=== PATIENT | female | born 1990 | race Caucasian/White ===

== ENCOUNTER 2017-09-28 10:53 | Day surgery (SDC) | payer BC ==
[~2017-09-28] VITALS: Ht 160 cm; Wt 61.3 kg
[~2017-09-28 10:53] MED LIST: TOPAMAX50 MG PO; TRI-SPRINTEC1 EACH
[2017-09-28 11:10] VITALS: BP 108/52
[2017-09-28 11:49] LABS: EOSINOPHIL (%) 0.7 % (0-5); HEMATOCRIT 36.5 % (36.0-46.0); IMMATURE GRANULOCYTE (%) 0.2 % (0.0-0.7); INSTRUMENT ABS NEUTROPHIL CT 3.1 K/uL; LYMPHOCYTE COUNT 1.8 K/uL (1.0-2.8); MCHC 33.4 G/DL (30.0-36.0); MCV 92.6 FL (83-99); MEAN PLAT.VOLUME 10.3 uM^3 (9.5-12.4); MONOCYTE COUNT 0.4 K/uL (0-0.8); NEUTROPHIL (%) 57.7 % (45-76); NEUTROPHIL COUNT 3.1 K/uL (1.8-6.4); PLATELET COUNT 253 K/uL (156-360); RBC DIS.WIDTH-CV 12.6 % (11.8-14.6); RBC DIS.WIDTH-SD 43.4 % (39-53); RED BLOOD COUNT 3.94 M/uL (3.80-5.20); WHITE BLOOD COUNT 5.4 K/uL (4.1-10.2)
[2017-09-28] MEDS ORDERED: ENDOCET 5-3251 EACH PO (14:25)
[2017-09-28] MEDS ORDERED: OXYCODONE-APAP1 EACH PO (15:18)
[2017-09-28] MEDS ORDERED: PERCOCET 5/31 TABLET PO (15:26)
[2017-09-28] MEDS ORDERED: IBUPROFEN800 MG PO (15:26)
[2017-09-28 15:40] VITALS: BP 111/70
== END 2017-09-28 16:39 | disposition home or self-care (01) ==
LOC: SDC 10:53
PROVIDERS: Obstetrics & Gynecology
PROC: 0U5F4ZZ Destruction of Cul-de-sac, Percutaneous Endoscopic Approach (ICD-10-PCS; principal; 2017-09-28)
DX: N80.3 Endometriosis of pelvic peritoneum (principal); N94.6 Dysmenorrhea, unspecified; Z88.0 Allergy status to penicillin; Z80.3 Family history of malignant neoplasm of breast
CPT/HCPCS: 84702; 85025; 87086; J0330; J1100; J1170; J1885; J2250; J2405; J2710; J3010; S0020